=== PATIENT | female | born 1955 | race Caucasian/White ===

== ENCOUNTER 2020-06-23 14:18 | Outpatient (CLI) | payer BC, SELFPAY ==
--- NOTE | ~2020-06-23 | US_ITS ---
EXAMINATION: US art doppler w press LE BI DATE: 06/23/2020 15:11 INDICATION: Peripheral vascular disease TECHNIQUE: Segmental pressures and plethysmographic and Doppler waveforms of the brachial and lower e xtremity arteries were obtained. COMPARISON: None. FINDINGS: Right and left brachial artery pressures of 107 mm Hg and 106 mm Hg, respectively, are concordant (no rmal difference <= 30 mmHg). The right and left high-thigh pressure indices were unable to be obtaine d due to inability to occlude the vessels. The right ankle-brachial index (JORGE) is 1.10 (normal >= 0.9-1). The right great toe-brachial index (T BI) is 1.03 (normal >= 0.6-0.8). The right lower extremity segmental pressure gradients are increased between the right [id number] and mfayt-mti-cpux popliteal arteries (normal gradients <= 20-30 mm Hg between adjacent levels on the same leg or the same levels on the two legs). Arterial waveforms ar e biphasic with brisk systolic upstrokes throughout. The left JORGE is 1.09. The left TBI is 0.87. The left lower extremity segmental pressure gradients are increased between the left yqrkf-uvn-rbdo popliteal artery and the left dorsalis pedis and posterior tibial arteries. Arterial waveforms are biphasic with brisk systolic upstrokes throughout. IMPRESSION: 1. Normal JORGE's and TBI's bilaterally. No significant occlusive disease. Reviewed, dictated and finalized at location A.
== END 2020-06-23 14:19 | disposition home or self-care (01) ==
PROVIDERS: PCP Nurse Practitioner Adult Health; Visit Provider Psychiatry & Neurology Neurology
DX: I73.9 Peripheral vascular disease, unspecified (principal)
CPT/HCPCS: 93923

== ENCOUNTER 2021-04-21 13:30 | Emergency (ER) | payer BC, SELFPAY ==
--- NOTE | ~2021-04-21 | CT_ITS ---
EXAMINATION: CT abdomen pelvis wo con DATE: 04/21/2021 14:02 INDICATION: Right flank pain. TECHNIQUE: Computed tomography (CT) of the abdomen and pelvis was performed without intravenous contr ast. Automated exposure control and iterative reconstruction technique were employed. The dose-length product was 1523.76 mGy-cm. COMPARISON: CT 04/04/2018 FINDINGS: The visualized portions of the lung bases demonstrate mild atelectasis. A calcified right l weston nodule and calcified paraesophageal lymph node are consistent with old granulomatous disease. The re is mild scarring in paraspinal right lower lobe. No pleural effusion. The heart size is normal. Th ere are coronary artery calcifications. No pericardial effusion. There is diffuse hepatic steatosis. Calcifications in the liver and spleen are consistent with old granulomatous disease. The pancreas, a drenal glands, and kidneys are normal. There is no urolithiasis. There is diverticulosis of the colon without evidence of diverticulitis. There is liquid stool in the colon suggestive of diarrhea. The a ppendix is normal. There are no pathologically enlarged lymph nodes. There is no free intraperitoneal fluid. There are chronic bilateral L5 pars defects. There is 6 mm anterolisthesis of L5 on S1. There is moderate lower lumbar spondylosis. There is a hemangioma in L2 vertebral body. IMPRESSION: 1. Diffuse hepatic steatosis. Reviewed, dictated and finalized at location A. [employer] ENDING MACHINE OPERATOR
[2021-04-21 13:37] VITALS: BP 162/78; PULSE 89; RESP 16; TEMP 36.9; O2SAT 97
--- NOTE | 2021-04-21 13:45 | ED.ABDPAIN ---
HPI - Abdominal Pain General Chief Complaint: Abdominal Pain Stated Complaint: Right Flank Pain Time Seen by Provider: 04/21/21 13:35 Source: patient Mode of arrival: ambulatory Limitations: no limitations History of Present Illness HPI narrative: Patient is a 65-year-old female complaining of right flank pain, sharp, 8 out of 10, nonradiating accompanied by diarrhea, described as loose watery, nonbloody started 2 days ago. Patient denies any chest pain, shortness of breath, abdominal pain, nausea, vomiting, urinary symptoms, fever or chills. Related Data Home Medications Medication Instructions Recorded Confirmed citalopram 20 mg tablet 20 mg PO DAILY 02/01/21 02/01/21 diclofenac sodium 75 mg 75 mg PO BID 02/01/21 02/01/21 tablet,delayed release duloxetine 60 mg capsule,delayed 60 mg PO DAILY 02/01/21 02/01/21 release metformin 500 mg tablet 500 mg PO BID 02/01/21 02/01/21 montelukast 10 mg tablet 10 mg PO DAILY 02/01/21 02/01/21 Allergies Allergy/AdvReac Type Severity Reaction Status Date / Time No Known Allergies Allergy Verified 04/21/21 13:40 Review of Systems Review of Systems: All systems reviewed & are unremarkable except as noted in HPI and below Constitutional: Constitutional: Denies body ache(s), Denies chills, Denies excessive sweating, Denies fatigue, Denies fever(s), Denies headache(s), Denies lethargy, Denies malaise, Denies weakness and Denies weight loss Eyes: Eyes: Denies blurry vision, Denies change in vision and Denies loss of vision ENT: Denies dizziness, Denies ear discharge, Denies headache(s), Denies lip swelling, Denies epistaxis, Denies nasal congestion, Denies neck pain, Denies throat swelling and Denies tongue swelling Cardiovascular: Cardiovascular: Denies chest pain, Denies chest pain at rest, Denies chest pain with activity, Denies diaphoresis, Denies rapid heart rate, Denies edema, Denies irregular heart rhythm, Denies lightheadedness, Denies palpitations, Denies dyspnea and Denies dyspnea on exertion Respiratory: Respiratory: Denies chest congestion, Denies cough, Denies hemoptysis, Denies dyspnea and Denies dyspnea on exertion Gastrointestinal: Gastrointestinal: Denies abdominal pain, Denies melena, Denies hematochezia, Denies nausea, Denies vomiting and Denies hematemesis Musculoskeletal: Musculoskeletal: Denies abnormal gait, Denies deformity, Denies joint swelling, Denies limited range of motion, Denies neck pain and Denies numbness Neurologic: Denies Abnormal speech present, Denies abnormal gait, Denies confusion, Denies dizziness, Denies headache(s), Denies focal weakness, Denies loss of vision, Denies numbness, Denies Other visual disturbances, Denies Sensory deficit (Neuro) and Denies weakness Psychiatric: Psychiatric: Denies confusion, Denies depression, Denies auditory hallucinations, Denies homicidal ideation and Denies suicidal ideation Endocrine: Endocrine: Denies cold intolerance, Denies excessive sweating, Denies fatigue, Denies heat intolerance and Denies palpitations Hematologic/Lymphatic: Hematologic/Lymphatic: Denies easy bleeding and Denies easy bruising Allergic/Immunologic: Allergic/Immunologic: Denies lip swelling, Denies throat swelling and Denies tongue swelling [facility] Social History Social History Smoking status: Never smoker Alcohol intake: never Comments Past medical history: Diabetes, anxiety, depression, chronic pain Family history: Diabetes, hypertension Social history: Non-smoker no EtOH or drug use Exam Const: General: cooperative, comfortable, no acute distress, well developed, alert and awake; No confusion Nutritional Appearance: obese Orientation/consciousness: oriented to person, oriented to place, oriented to time, patient oriented x3 and No confusion Limitations: no limitations HENMT: Head: normal to inspection, normocephalic and atraumatic Ears: hearing grossly normal bilater
[2021-04-21 14:03] LABS: Add Urine Microscopic? YES; Appearance Urine Clear (Clear); Bacteria Urine Trace /hpf; Bilirubin Urine Negative (Negative); Blood Urine Negative (Negative); Color Urine Amber (Yellow); Glucose Urine UA Negative (Negative); Hyaline Casts Urine 15-19 /lpf; Ketones Urine Trace mg/dL (Negative); Leukocyte Esterase Ur 1+ LEU/UL (Negative); Mucus Urine Few /lpf; Nitrate Urine Negative (Negative); Protein Urine 1+ mg/dL (Negative); Specific Grav Ur 1.026 (1.001-1.035); Squamous Epithelial Cell Urine Many /hpf (Few); Urobilinogen Urine Negative mg/dL (<2.0); WBC Urine 21-30 /hpf
[2021-04-21 14:22] LABS: Basophils Percent Auto 0.4 % (0.2-1.2); Eosinophils Absolute Auto 0.2 K/mm3 (0-0.3); Eosinophils Percent Auto 1.8 % (0-4.4); Hemoglobin 12.9 g/dL (12.0-15.0); Immature Granulocyte Absolute 0.04 K/mm3 (0.00-0.031); Immature Granulocyte Percent A 0.4 % (0-0.5); Lymphocytes Absolute Auto 3.47 K/mm3 (0.9-3.2); Mean Corpuscular HGB Conc 33.1 g/dl (32-36); Mean Corpuscular Hemoglobin 29.6 pg (26-34); Mean Corpuscular Volume 89.4 fl (80-100); Mean Platelet Volume 10.4 fl (7.4-10.4); Monocytes Absolute Auto 0.6 K/mm3 (0.1-0.6); Monocytes Percent Auto 5.3 % (2.6-8.5); Neutrophils Absolute Auto 6.5 K/mm3 (1.3-6.7); Neutrophils Percent Auto 60.1 % (45.5-73.1); Platelet Count Result 292 k/mm3 (150-375); Red Blood Count 4.36 M/mm3 (4.2-5.4); Red Cell Distribution Width 12.7 % (11.5-14.5); White Blood Count 10.8 K/mm3 (4.5-10.0)
[2021-04-21] MEDS: SODIUM CHLORIDE 0.9% IV 1,000 ML 999 ML IV CONT (14:36)
[2021-04-21 14:42] LABS: Alanine Aminotransferase 18 U/L (4-35); Alkaline Phosphatase 90 U/L (38-126); Anion Gap 9 mmol/L (8-16); Aspartate Amino Transferase 22 U/L (14-36); Bilirubin,Total 0.4 mg/dL (0.2-1.3); Blood Urea Nitrogen 19 mg/dL (7-17); Calcium 9.1 mg/dL (8.4-10.2); Carbon Dioxide 25 mmol/L (22-30); Chloride 108 mmol/L (98-107); Estimated CRCL calculation 75 ml/min; Estimated Glomerular Filt Rate > 60; Glucose 136 mg/dL (65-110); Lipase 154 U/L (23-300); Potassium 3.8 mmol/L (3.4-5.0); Sodium 142 mmol/L (137-145)
[2021-04-21 15:51] VITALS: BP 126/70; PULSE 68; RESP 18; O2SAT 98
--- NOTE | 2021-04-29 08:29 | PC.NURSE ---
Fluids had been stopped prior to d/c
== END 2021-04-21 16:09 | disposition home or self-care (01) ==
PROVIDERS: Emergency Provider Emergency Medicine; PCP Nurse Practitioner Adult Health
DX: K52.9 Noninfective gastroenteritis and colitis, unspecified (principal); K76.0 Fatty (change of) liver, not elsewhere classified; E11.9 Type 2 diabetes mellitus without complications; F41.9 Anxiety disorder, unspecified; F32.A Depression, unspecified; Z79.84 Long term (current) use of oral hypoglycemic drugs
CPT/HCPCS: 36415; 74176; 80053; 81001; 83690; 85025; 87086; 87088; 96360; 99284; J7030

== ENCOUNTER 2022-04-28 02:00 | Day surgery (SDC) | payer BC, SELFPAY ==
[2022-04-17 14:43] VITALS: BMI 49.6
--- NOTE | 2022-04-27 16:01 | P.HP_ITS ---
History of Present Illness History of Present Illness Consent: Risks, benefits, and alternatives have been discussed and questions answered. Patient agrees to proceed with procedure. Chief complaint: gastritis, colitis Narrative: Cathie Cline is a 66 year old female Was being investigated for chronic diarrhea. The diarrhea has been going on for about 6 months.? Prior to that, there had been no travel and no antibiotic usage.? There was no change in medication either.? Her stools are loose, Ness but not bloody.? She will get the urge to have a bowel movement almost immediately after eating.? .? She has avoided fruits and vegetables which seem to aggravate it he also has avoided seeds and nuts.? She tried a brat diet which did not help.? She has been taking Lomotil up to 4 times a day without any benefit.? She actually has been incontinent of stool a couple of times. [facility] Past Medical History Medical History Anemia Arthritis Asthma Cholecystectomy planned Depression FHx: cholecystectomy Hx of blood clots Neuropathy Family History Family History Grandparent Carcinoma of colon Sibling Crohn disease Social History Social History Smoking status: Never smoker Alcohol intake: never Substance use: never Substance use type: does not use Living arrangements: with family Spiritual care concerns: No Meds Home Medications and Allergies Home Medications Medication Instructions Recorded Confirmed Type nabumetone 750 mg tablet 750 mg PO BID #60 tabs 06/15/20 04/17/22 Rx citalopram 20 mg tablet 20 mg PO DAILY 02/01/21 04/17/22 History diclofenac sodium 75 mg 75 mg PO BID 02/01/21 04/17/22 History tablet,delayed release duloxetine 60 mg capsule,delayed 60 mg PO DAILY 02/01/21 04/17/22 History release metformin 500 mg tablet 500 mg PO BID 02/01/21 04/17/22 History Allergies Allergy/AdvReac Type Severity Reaction Status Date / Time No Known Allergies Allergy Verified 03/28/22 09:11 Assessment and Plan Assessment and plan (1) Chronic diarrhea: Code(s): K52.9 - Noninfective gastroenteritis and colitis, unspecified Status: Acute Assessment and Plan: Colonoscopy with possible biopsy or polypectomy or cautery or injection of substances.
[2022-04-28 12:09] VITALS: BP 141/85; PULSE 72; RESP 18; TEMP 36.3; O2SAT 98
--- NOTE | 2022-04-28 12:11 | SUR.PREOP ---
DR YANG NOTIFIED PT ATE SOLID FOOD INCLUDING TURKEY AND CHEESE UP UNTIL NOON YESTERDAY, PT TOOK FIRST HALF OF BOWEL PREP OK BUT VOMITED MOST OF THE SECOND HALF UP, PT STATES I DON'T FEEL CLEANED OUT , STATES BOWELS ARE LIQUID DARK BROWN. DR YANG WILL SEE PT TO DISCUSS FURTHER. AFTER SPEAKING WITH PT, DR YANG CANCELED PROCEDURE AND WILL RE-SCHEDULE PT. PT STATES UNDERSTANDING.
== END 2022-04-28 12:29 | disposition home or self-care (01) ==
PROVIDERS: PCP Family Medicine; Visit Provider Internal Medicine Gastroenterology
PROC: 0DJD8ZZ Inspection of Lower Intestinal Tract, Via Natural or Artificial Opening Endoscopic (ICD-10-PCS; CPT 45378; principal; 2022-04-28 13:00)
DX: R19.7 Diarrhea, unspecified (principal); Z53.8 Procedure and treatment not carried out for other reasons
CPT/HCPCS: 99212; G0463

== ENCOUNTER 2022-11-24 17:32 | Emergency (ER) | payer BC, SELFPAY ==
[2022-11-24 17:51] VITALS: BP 96/54; PULSE 83; RESP 18; TEMP 36.6; O2SAT 98
--- NOTE | 2022-11-24 19:02 | PC.NURSE ---
patient ambulatory to desk and stated she was leaving. informed to come back if symptoms got worse.
== END 2022-11-24 19:02 | disposition left against medical advice (07) ==
LOC: ANHED 19:08
PROVIDERS: PCP Family Medicine
DX: R42 Dizziness and giddiness (principal)
CPT/HCPCS: 99199

== ENCOUNTER 2023-02-05 08:01 | Emergency (ER) | payer BC, SELFPAY ==
[2023-02-05 08:45] LABS: Basophils Percent Auto 0.3 % (0.2-1.2); Eosinophils Absolute Auto 0.2 K/mm3 (0-0.3); Eosinophils Percent Auto 1.4 % (0-4.4); Hematocrit 41.3 % (37.0-47.0); Hemoglobin 13.6 g/dL (12.0-15.0); Immature Granulocyte Absolute 0.05 K/mm3 (0.00-0.031); Immature Granulocyte Percent A 0.4 % (0-0.5); Lymphocytes Percent Auto 23.1 % (18.3-44.2); Mean Corpuscular HGB Conc 32.9 g/dl (32-36); Mean Corpuscular Hemoglobin 29.7 pg (26-34); Mean Corpuscular Volume 90.2 fl (80-100); Mean Platelet Volume 10.7 fl (7.4-10.4); Monocytes Percent Auto 7.5 % (2.6-8.5); Neutrophils Absolute Auto 8.7 K/mm3 (1.3-6.7); Neutrophils Percent Auto 67.3 % (45.5-73.1); Platelet Count Result 288 k/mm3 (150-375); Red Blood Count 4.58 M/mm3 (4.2-5.4)
[2023-02-05 08:49] VITALS: BP 150/78; PULSE 79; RESP 18; O2SAT 95
[2023-02-05 08:54] LABS: Alanine Aminotransferase 15 U/L (6-35); Albumin Level 4.6 g/dL (3.5-5.1); Alkaline Phosphatase 116 U/L (38-126); Anion Gap 7 mmol/L (8-16); Aspartate Amino Transferase 20 U/L (14-36); Bilirubin,Total 0.7 mg/dL (0.2-1.3); Blood Urea Nitrogen 18 mg/dL (7-17); Carbon Dioxide 27 mmol/L (22-30); Chloride 104 mmol/L (98-107); Estimated CRCL calculation 81 ml/min; Estimated Glomerular Filt Rate > 60; Glucose 115 mg/dL (65-110); Potassium 4.1 mmol/L (3.4-5.0); Sodium 138 mmol/L (137-145)
--- NOTE | 2023-02-05 08:54 | PC.NURSE ---
Pt unable to void at this time.
[2023-02-05] MEDS: SODIUM CHLORIDE 0.9% IV 1,000 ML 999 ML IV CONT (09:11)
[2023-02-05] MEDS: KETOROLAC 15 MG/ML VIAL (*BKC) IV PUSH (09:11)
[2023-02-05 09:22] LABS: Appearance Urine Clear (Clear); Bilirubin Urine Negative (Negative); Blood Urine Negative (Negative); Color Urine Yellow (Yellow); Glucose Urine UA Negative (Negative); Ketones Urine Negative (Negative); Leukocyte Esterase Ur Negative LEU/UL (Negative); Nitrate Urine Negative (Negative); Protein Urine Negative (Negative); Specific Grav Ur 1.024 (1.001-1.035); Urobilinogen Urine 0.2 mg/dL (<2.0); pH Urine 5.5 (5.0-9.0)
[2023-02-05 09:27] LABS: Add Urine Microscopic? NO
[2023-02-05 09:31] VITALS: BP 145/80; PULSE 79; RESP 18; O2SAT 95
[2023-02-05 10:01] VITALS: BP 147/88; PULSE 78; RESP 18; O2SAT 100
[2023-02-05 10:31] VITALS: BP 136/77; PULSE 80; RESP 18; O2SAT 93
[2023-02-05 11:08] LABS: Influenza A QL RT-PCR Negative (Negative); Influenza B QL RT-PCR Negative (Negative); SARS-CoV-2 RNA PCR Negative (Negative)
--- NOTE | 2023-02-05 11:52 | ED.GENADULT ---
HPI - General Adult General Chief complaint: Urogenital-Female Stated complaint: kiney infectoin Time Seen by Provider: 02/05/23 08:21 History of Present Illness HPI narrative: patient is a 67-year-old female who presents ER with left-sided flank pain. Very low back. Woke up with it today. Reports she is urinating frequently. No dysuria. No fevers or chills or sweats. She is without nausea or vomiting. No history kidney stones. She does report some mild body aches. Related Data Home Medications Medication Instructions Recorded Confirmed diclofenac sodium 75 mg 75 mg PO BID 02/01/21 04/17/22 tablet,delayed release duloxetine 60 mg capsule,delayed 60 mg PO DAILY 02/01/21 04/17/22 release metformin 500 mg tablet 500 mg PO BID 02/01/21 04/17/22 citalopram 40 mg tablet 20 mg PO DAILY 11/29/22 11/29/22 lisinopril 40 mg tablet 40 mg PO DAILY 11/29/22 11/29/22 oxybutynin chloride 5 mg tablet 5 mg PO BID 11/29/22 11/29/22 Allergies Allergy/AdvReac Type Severity Reaction Status Date / Time adhesive tape Allergy Mild Unknown Verified 11/29/22 15:26 Review of Systems Review of Systems: All systems reviewed & are unremarkable except as noted in HPI and below Constitutional: Constitutional: Reports no additional constitutional complaints Cardiovascular: Cardiovascular: Reports no additional cardiovascular complaints Respiratory: Respiratory: Reports no additional respiratory complaints Gastrointestinal: Gastrointestinal: Reports no additional gastrointestinal complaints Genitourinary: Genitourinary: Denies hematuria, Reports nocturia, Denies dysuria and Reports flank pain PMFSH Past Medical History Medical History (Updated 02/05/23 @ 11:52 by Melchor Villalobos MD) Anemia Arthritis Asthma Cholecystectomy planned Depression FHx: cholecystectomy Gout History of breast cancer HTN (hypertension) Hx of blood clots Neuropathy OAB (overactive bladder) Osteoporosis Family History Family History Grandparent Carcinoma of colon Sibling Crohn disease Social History Social History Smoking status: Never smoker Alcohol intake: never Substance use: never Substance use type: does not use Living arrangements: with family Occupation/Education: occupation Gender identity (if verbalized by the patient): Female Spiritual care concerns: No Exam Narrative: GENERAL: Well-appearing, Morbidly obese, and in no acute distress. HEAD: Normocephalic, atraumatic. ENT: Mucous membranes moist. CHEST: Clear to auscultation. No respiratory distress. HEART: Regular rate and rhythm. Normal peripheral pulses. ABDOMEN: Soft, nontender, nondistended. back: No reproducible midline tenderness at T/L-spine. Mild left lower lumbar tenderness without CVA tenderness. EXTREMITIES: Normal range of motion. No edema. SKIN: Warm, dry, no rash. NEURO: Alert and oriented x3. PSYCH: Normal mood and affect. Course Course Emergency Course: Patient resting comfortably. Informed of results. Cana appropriate for discharge home. Patient did receive Toradol which improved her symptoms. Vital Signs Vital signs: Vital Signs Pulse Rate 79 02/05/23 08:49 Respiratory Rate 18 02/05/23 08:49 Blood Pressure 150/78 H 02/05/23 08:49 Pulse Oximetry 95 02/05/23 08:49 Temperature 97.9 F 02/05/23 12:11 Pulse Rate 80 02/05/23 12:11 Respiratory Rate 16 02/05/23 12:11 Blood Pressure 130/88 02/05/23 12:11 Pulse Oximetry 96 02/05/23 12:11 Medical Decision Making Vital Signs Vital Signs: Vital Signs Pulse Rate 79 02/05/23 08:49 Respiratory Rate 18 02/05/23 08:49 Blood Pressure 150/78 H 02/05/23 08:49 Pulse Oximetry 95 02/05/23 08:49 Temperature 97.9 F 02/05/23 12:11 Pulse Rate 80 02/05/23 12:11 Respiratory Rate 16 02/05/23 12:11 Blo
[2023-02-05 12:11] VITALS: BP 130/88; PULSE 80; RESP 16; TEMP 36.6; O2SAT 96
== END 2023-02-05 12:13 | disposition home or self-care (01) ==
PROVIDERS: Emergency Provider Emergency Medicine; PCP Family Medicine
DX: M54.50 Low back pain, unspecified (principal); I10 Essential (primary) hypertension; Z85.3 Personal history of malignant neoplasm of breast; Z90.49 Acquired absence of other specified parts of digestive tract; Z20.822 Contact with and (suspected) exposure to COVID-19
CPT/HCPCS: 36415; 80053; 81003; 85025; 87636; 96361; 96374; 99284; J1885; J7030

== ENCOUNTER 2023-05-17 07:39 | Outpatient (CLI) | payer SELFPAY ==
[2023-05-17 08:36] LABS: Appearance Urine Cloudy (Clear); Bacteria Urine None Seen /hpf; Bilirubin Urine Negative (Negative); Blood Urine Negative (Negative); Color Urine Yellow (Yellow); Glucose Urine UA Negative (Negative); Ketones Urine Trace mg/dL (Negative); Leukocyte Esterase Ur Trace LEU/UL (Negative); Nitrate Urine Negative (Negative); Non Pathogenic Casts 0-2; Protein Urine Negative (Negative); RBC Urine 0-2 /hpf (0-2); Specific Grav Ur 1.022 (1.001-1.035); Squamous Epithelial Cell Urine Few /hpf (Few); Urobilinogen Urine 0.2 mg/dL (<2.0); WBC Urine 0-5 /hpf (0-3); pH Urine 5.5 (5.0-9.0)
[2023-05-17 08:37] LABS: Add Urine Microscopic? YES
[2023-05-17 08:42] LABS: Hematocrit 39.9 % (37.0-47.0); Hemoglobin 13.1 g/dL (12.0-15.0); Mean Corpuscular HGB Conc 32.8 g/dl (32-36); Mean Corpuscular Hemoglobin 29.6 pg (26-34); Mean Corpuscular Volume 90.1 fl (80-100); Platelet Count Result 255 k/mm3 (150-375); Red Blood Count 4.43 M/mm3 (4.2-5.4); Red Cell Distribution Width 13.1 % (11.5-14.5); White Blood Count 9.1 K/mm3 (4.5-10.0)
[2023-05-17 08:57] LABS: Alanine Aminotransferase 16 U/L (6-35); Albumin Level 4.1 g/dL (3.5-5.1); Alkaline Phosphatase 85 U/L (38-126); Anion Gap 5 mmol/L (8-16); Aspartate Amino Transferase 20 U/L (14-36); Bilirubin,Total 0.6 mg/dL (0.2-1.3); Blood Urea Nitrogen 24 mg/dL (7-17); Calcium 9.4 mg/dL (8.4-10.2); Carbon Dioxide 26 mmol/L (22-30); Chloride 105 mmol/L (98-107); Cholesterol 197 mg/dL (0-200); Estimated Glomerular Filt Rate > 60; Glucose 124 mg/dL (65-110); HDL Direct 57 mg/dL; Potassium 4.2 mmol/L (3.4-5.0); Sodium 136 mmol/L (137-145); Triglycerides 203 mg/dL (<150)
[2023-05-17 09:03] LABS: Creatinine Urine 180.3 mg/dL
[2023-05-17 09:08] LABS: LDL Cholesterol Direct 114 mg/dL
[2023-05-17 09:09] LABS: MALB Creatinine Ratio 5.2 mg/g (0-30); Microalbumin Urine Random 9.4 mg/L (0-16.7)
[2023-05-18 10:04] LABS: Hemoglobin A1C 6.2 % (<5.7)
== END 2023-05-17 07:40 | disposition home or self-care (01) ==
PROVIDERS: PCP Family Medicine; Referring Provider Orthopaedic Surgery; Visit Provider Family Medicine
DX: Z01.818 Encounter for other preprocedural examination (principal); E11.9 Type 2 diabetes mellitus without complications; E78.5 Hyperlipidemia, unspecified; I10 Essential (primary) hypertension
CPT/HCPCS: 36415; 80053; 80061; 82043; 83036; 84443; 85027